=== PATIENT | female | born 1955 | race Hispanic/Latino ===

== ENCOUNTER → 2021-01-17 | Outpatient (CLI) | payer MEDICARE | END | disposition home or self-care (01) | LOC: OIH 08:59 | PROVIDERS: ATTEND Internal Medicine | DX: S80.01XA Contusion of right knee, initial encounter (principal); R60.9 Edema, unspecified; X58.XXXA Exposure to other specified factors, initial encounter; Y93.89 Activity, other specified; Y92.89 Other specified places as the place of occurrence of the external cause; Y99.8 Other external cause status | CPT/HCPCS: 73562 ==